=== PATIENT | female | born 2000 ===

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

== ENCOUNTER 2018-01-30 21:54 | Emergency (ER) | payer SELFPAY ==
[2018-01-30 21:54] VITALS: BMI 31.6
[2018-01-30 22:07] VITALS: BP 110/72; PULSE 94; RESP 16; TEMP 98.2; O2SAT 100
[2018-01-30] MEDS ORDERED: Lactated Ringer's 1,000 ML IV STA (23:00)
[2018-01-30 23:47] LABS: BASO % 0.4 % (0.0-2.0); EOS # 0.1 K/uL (0.0-0.7); EOS % 1.7 % (0.0-4.0); HEMOGLOBIN 9.8 g/dL (12.0-16.0); LYMPH % 34.7 % (20.0-40.0); MEAN CELL VOLUME 63.6 fl (81.0-99.0); MEAN CORPUSCULAR HEMOGLOBIN 20.1 pg (27.0-31.0); MEAN CORPUSCULAR HGB CONC 31.6 g/dL (33.0-37.0); MEAN PLATELET VOLUME 7.5 fl (7.2-11.7); MONO # 0.5 K/uL (0.0-0.8); NEUT % 57.2 % (50.0-75.0); NRBC % 0.1 % (0.0-0.0); RBC 4.88 Mil/uL (3.80-5.20); WHITE BLOOD COUNT 8.7 K/uL (4.8-10.8)
[2018-01-30 23:56] LABS: ALB/GLOB RATIO 1.3 (1.0-2.1); ALBUMIN 4.2 g/dL (3.5-5.0); ALT/SGPT 23 U/L (9-52); AST/SGOT 16 U/L (14-36); BLOOD UREA NITROGEN 10 mg/dl (7-17); CALCIUM 9.1 mg/dL (8.4-10.2); GFR AFRICAN-AMERICAN > 60; GFR NON-AFRICAN AMERICAN > 60
[2018-01-31] LABS: PARTIAL THROMBOPLASTIN TIME 33.5 Seconds (25.6-37.1); PROTHROMBIN TIME 11.6 Seconds (9.8-13.1)
--- NOTE | 2018-01-31 00:08 | ED PDOC ---
HPI: Female Pain Time Seen by Provider: 01/30/18 22:40 Chief Complaint (Nursing): Abdominal Pain Chief Complaint (Provider): Vaginal Bleeding and Pelvic pain History Per: Patient History/Exam Limitations: no limitations Onset/Duration Of Symptoms: Days (5 days ago) Current Symptoms Are (Timing): Still Present Additional Complaint(s): 17 yo female with a history of anemia, presents to the ED complaining of vaginal bleeding, pelvic pain,suprapubic abdominal pain, headache, vomiting, and dysuria, onset of 5 days ago. Patient reports that in the beginning of january she was having a normal period, but 5 days ago she began to experience additional vaginal bleeding and painful cramping, prompting her visit to the ED today. Of note, patient reports that she has a period typically every month with no bleeding in between. Patient states that she has been taking Tylenol at home with minimal relief. She does acknowledge that there is a possibility of , but has not taken any test yet. Abnormal Vaginal Bleeding: Yes Past Medical History Reviewed: Historical Data, Nursing Documentation, Vital Signs Vital Signs: Last Vital Signs Temp 98.2 F 01/30/18 22:05 Pulse 94 H 01/30/18 22:05 Resp 16 01/30/18 22:05 BP 110/72 01/30/18 22:05 Pulse Ox 100 01/30/18 22:05 - Medical History Other PMH: anemia - Surgical History Surgical History: Appendectomy - Family History Family History: States: Unknown Family Hx - Living Arrangements Living Arrangements: With Family (she has an 11 month child at home) - Social History Current smoker - smoking cessation education provided: No Ex-Smoker (has not smoked in the last 12 months): No Alcohol: None Drugs: Denies - Home Medications Home Medications: Ambulatory Orders Medication Instructions Recorded Multivit/Folic Acid/I 1 tab PO DAILY 01/09/17 [] Docusate [Colace] 100 mg PO BID PRN #60 cap 02/19/17 Ferrous Sulfate [Feosol] 325 tab PO DAILY #30 02/19/17 Ibuprofen [Motrin Tab] 600 mg PO Q6 PRN #40 tab 02/19/17 Ibuprofen [Motrin Tab] 600 mg PO Q6 #30 tab 09/20/17 Nitrofurantoin Macrocrystals 100 mg PO BID 5 Days cap 09/20/17 [Macrobid] Ibuprofen [Motrin Tab] 600 mg PO Q8 PRN #30 tab 01/31/18 Nitrofurantoin Macrocrystals 1 cap PO BID #14 cap 01/31/18 [Macrobid] - Allergies Allergies/Adverse Reactions: Allergies Allergy/AdvReac Type Severity Reaction Status Date / Time acetaminophen Allergy SWELLING Verified 01/30/18 22:05 nut - unspecified Allergy SWELLING Verified 01/30/18 22:05 Review of Systems Constitutional: Negative for: Fever Gastrointestinal: Positive for: Vomiting, Abdominal Pain (suprapubic abdominal pain; cramps) Genitourinary Female: Positive for: Vaginal Bleeding, Pelvic Pain Neurological: Positive for: Headache Physical Exam - Reviewed Nursing Documentation Reviewed: Yes Vital Signs Reviewed: Yes - Physical Exam Appears: Positive for: Non-toxic, In Acute Distress (painful) Head Exam: Positive for: ATRAUMATIC, NORMOCEPHALIC Skin: Positive for: Warm, Dry, Pallor Eye Exam: Positive for: EOMI, PERRL ENT: Negative for: Pharyngeal Erythema, Tonsillar Exudate Neck: Positive for: Painless ROM, Supple Cardiovascular/Chest: Positive for: Regular Rate, Rhythm. Negative for: Murmur Respiratory: Positive for: Normal Breath Sounds. Negative for: Respiratory Distress Gastrointestinal/Abdominal: Positive for: Normal Exam, Soft, Tenderness (to suprapubic region) Back: Positive for: Normal Inspection. Negative for: L CVA Tenderness, R CVA Tenderness Extremity: Positive for: Normal ROM. Negative for: Deformity Lymphatic: Negative for: Adenopathy Neurologic/Psych: Positive for: Alert. Negative for: Motor/Sensory Deficits - Laboratory Results Result Diagrams: 01/30/18 23:42 01/30/18 23:42 - ECG O2 Sat by Pulse Oximetry: 100 (RA) Pulse Ox Interpretation: Normal Medical Decision Making Medical Decision Making: Time: --22:41 Impression: --Vaginal Bleeding and Pelvic pain Differential( includes but not limited to): threatened vs. ectopic vs. metrorrhagia vs. UTI vs. Cystitis Plan: --Blood type and screen --beta-hcg, quantitative --labs --ED Urine Dip --ED urine preg --Lactated Ringers IV 1000mls/hr --IV Insertion Reassess Pt not Mild anemia UTI on exam DW pt findings and plan of care. Stable for DC with editor trade journal follow up. Scribe Attestation: Documented by Morgan Lanier acting as a scribe for Meghan Honeycutt MD. Provider Attestation: All medical record entries made by the Scribe were at my direction and personally dictated by me. I have reviewed the chart and agree that the record accurately reflects my personal performance of the history, physical exam, medical decision making, and the department course for this patient. I have also personally directed, reviewed, and agree with the discharge instructions and disposition. Disposition - Clinical Impression Clinical Impression: Menometrorrhagia, UTI (urinary tract infection) - Disposition Referrals: [facility] [Outside] ([facility] EN 2-3 RAMOS P[facility] MAS EVALUAC[facility]) Disposition: Routine/Home Disposition Time: 00:30 Condition: STABLE Prescriptions: Ibuprofen [Motrin Tab] 600 mg PO Q8 PRN #30 tab PRN Reason: Pain, Moderate (4-7) Nitrofurantoin Macrocrystals [Macrobid] 1 cap PO BID #14 cap Instructions: Heavy Periods Forms: [facility] (U[place]ayan) Print Language: MARTINIQUAIS
== END 2018-01-31 01:00 | disposition home or self-care (01) ==
LOC: H.ER 21:54
DX: N92.1 Excessive and frequent menstruation with irregular cycle (principal); N39.0 Urinary tract infection, site not specified; Z87.891 Personal history of nicotine dependence
CPT/HCPCS: 80053; 81025; 84702; 85025; 85610; 85730; 86850; 86900; 87491; 87591; 96374; 99283; J1885; J7120